=== PATIENT | female | born 1990 | race Two or more races ===

== ENCOUNTER 2021-02-20 11:49 | Observation (INO) | payer MEDICAID ==
[~2021-02-20] VITALS: Ht 157.5 cm; Wt 73.9 kg
== END 2021-02-20 13:16 | disposition home or self-care (01) ==
LOC: OB 11:49 → LDRP 12:00
PROVIDERS: ADMIT Obstetrics & Gynecology; ATTEND Obstetrics & Gynecology
DX: O40.3XX0 Polyhydramnios, third trimester, not applicable or unspecified (principal); O62.9 Abnormality of forces of labor, unspecified; Z3A.28 28 weeks gestation of pregnancy
CPT/HCPCS: 59025; 81002; 94760; G0378

== ENCOUNTER 2021-02-27 08:55 | Observation (INO) | payer MEDICAID ==
[2021-05-02] MEDS ORDERED: NIF10C PO (12:08)
== END 2021-02-27 10:18 | disposition home or self-care (01) ==
LOC: LDRP 08:55
PROVIDERS: ADMIT Specialist; ATTEND Specialist
DX: O40.3XX0 Polyhydramnios, third trimester, not applicable or unspecified (principal); Z3A.29 29 weeks gestation of pregnancy
CPT/HCPCS: 59025; 81002; 94760; G0378

== ENCOUNTER 2021-03-06 08:45 | Observation (INO) | payer MEDICAID ==
[~2021-03-06] VITALS: Ht 154.9 cm; Wt 73.9 kg
[2021-03-06] MEDS ORDERED: [UNRECOGNIZED DRUG - CODE] OR (09:25)
== END 2021-03-06 10:14 | disposition home or self-care (01) ==
LOC: LDRP 08:45
PROVIDERS: ADMIT Obstetrics & Gynecology; ATTEND Obstetrics & Gynecology
DX: O40.3XX0 Polyhydramnios, third trimester, not applicable or unspecified (principal); O24.419 Gestational diabetes mellitus in pregnancy, unspecified control; Z91.040 Latex allergy status; Z3A.30 30 weeks gestation of pregnancy
CPT/HCPCS: 59025; 81002; 82962; G0378

== ENCOUNTER 2021-03-13 08:39 | Observation (INO) | payer MEDICAID, OTHER ==
[~2021-03-13 08:39] MED LIST: [UNRECOGNIZED DRUG - CODE] OR
== END 2021-03-13 11:00 | disposition home or self-care (01) ==
LOC: EDUNIT# 08:39 → LDRP 08:39
PROVIDERS: ADMIT Specialist; ATTEND Specialist
DX: O40.3XX0 Polyhydramnios, third trimester, not applicable or unspecified (principal); O24.419 Gestational diabetes mellitus in pregnancy, unspecified control; Z3A.31 31 weeks gestation of pregnancy
CPT/HCPCS: 59025; 76818; 81002; 82948; 82962; G0378

== ENCOUNTER 2021-03-18 08:00 | Observation (INO) | payer MEDICAID | END 2021-03-18 10:23 | disposition home or self-care (01) | LOC: LDRP 08:00 | PROVIDERS: ADMIT Specialist; ATTEND Specialist | DX: O40.3XX0 Polyhydramnios, third trimester, not applicable or unspecified (principal); O24.419 Gestational diabetes mellitus in pregnancy, unspecified control; Z3A.31 31 weeks gestation of pregnancy | CPT/HCPCS: 59025; 76818; 81002; 82962; G0378 ==

== ENCOUNTER 2021-03-21 09:03 | Observation (INO) | payer MEDICAID | END 2021-03-21 11:09 | disposition home or self-care (01) | LOC: LDRP 10:00 | PROVIDERS: ADMIT Obstetrics & Gynecology; ATTEND Obstetrics & Gynecology | DX: O24.419 Gestational diabetes mellitus in pregnancy, unspecified control (principal); Z3A.32 32 weeks gestation of pregnancy | CPT/HCPCS: 59025; 76818; 81002; 82948; 82962; 94760; G0378 ==

== ENCOUNTER 2021-03-28 09:58 | Observation (INO) | payer MEDICAID ==
[~2021-03-28] VITALS: Ht 157.5 cm; Wt 78.5 kg
[2021-03-28] MEDS ORDERED: METF-370 PO (11:05)
== END 2021-03-28 11:55 | disposition home or self-care (01) ==
LOC: LDRP 09:58
PROVIDERS: ADMIT Specialist; ATTEND Specialist
DX: O24.419 Gestational diabetes mellitus in pregnancy, unspecified control (principal); O40.3XX0 Polyhydramnios, third trimester, not applicable or unspecified; Z3A.33 33 weeks gestation of pregnancy
CPT/HCPCS: 59025; 76818; 81002; 94760; G0378

== ENCOUNTER 2021-04-02 09:58 | Observation (INO) | payer MEDICAID ==
[~2021-04-02 09:58] MED LIST changes: +METF-370 PO
== END 2021-04-02 11:20 | disposition home or self-care (01) ==
LOC: LDRP 09:58
PROVIDERS: ADMIT Specialist; ATTEND Specialist
DX: O24.419 Gestational diabetes mellitus in pregnancy, unspecified control (principal); Z3A.33 33 weeks gestation of pregnancy
CPT/HCPCS: 59025; 76818; 81002; 82948; G0378

== ENCOUNTER 2021-04-09 08:01 | Observation (INO) | payer MEDICAID | END 2021-04-18 09:55 | disposition home or self-care (01) | LOC: LDRP 04-18 08:22 | PROVIDERS: ADMIT Obstetrics & Gynecology; ATTEND Obstetrics & Gynecology | DX: O24.419 Gestational diabetes mellitus in pregnancy, unspecified control (principal); Z3A.36 36 weeks gestation of pregnancy | CPT/HCPCS: 59025; 76818; 81002; 82948; 82962; 94760; G0378 ==

== ENCOUNTER 2021-04-09 11:19 | Observation (INO) | payer MEDICAID, OTHER | END 2021-04-09 12:30 | disposition home or self-care (01) | LOC: LDRP 11:19 → EDUNIT# 11:19 → LDRP 11:21 | PROVIDERS: ADMIT Obstetrics & Gynecology; ATTEND Obstetrics & Gynecology | DX: O24.419 Gestational diabetes mellitus in pregnancy, unspecified control (principal); Z3A.34 34 weeks gestation of pregnancy; Z91.040 Latex allergy status | CPT/HCPCS: 59025; 81002; 82948; 82962; 94760; G0378 ==

== ENCOUNTER 2021-04-25 07:36 | Observation (INO) | payer MEDICAID ==
[2021-05-02] MEDS ORDERED: NIF10C PO (12:08)
== END 2021-04-25 10:52 | disposition home or self-care (01) ==
LOC: LDRP 09:06
PROVIDERS: ADMIT Obstetrics & Gynecology; ATTEND Obstetrics & Gynecology
DX: O24.415 Gestational diabetes mellitus in pregnancy, controlled by oral hypoglycemic drugs (principal); Z79.84 Long term (current) use of oral hypoglycemic drugs; Z3A.37 37 weeks gestation of pregnancy
CPT/HCPCS: 59025; 76818; 81002; 82948; 94760; G0378

== ENCOUNTER 2021-04-29 09:03 | Observation (INO) | payer MEDICAID ==
[~2021-04-29] VITALS: Ht 157.5 cm; Wt 81.6 kg
[2021-04-29] MEDS ORDERED: TERBUTALINE SULFATE 1 MG/ML 1ML VIAL SC ONE (11:26)
[2021-04-29] MEDS ORDERED: TERBUTALINE SULFATE 1 MG/ML 1ML VIAL SC PRN (12:50)
[2021-04-29] MEDS ORDERED: NIFEdipine 10 MG CAP PO ONE (13:15)
[2021-04-29] MEDS ORDERED: NIFEdipine 10 MG CAP PO SCH (19:00)
[2021-04-30] MEDS ORDERED: TERBUTALINE SULFATE 1 MG/ML 1ML VIAL SC ONE (10:00)
== END 2021-04-29 14:28 | disposition home or self-care (01) ==
LOC: LDRP 10:19
PROVIDERS: ADMIT Obstetrics & Gynecology; ATTEND Obstetrics & Gynecology
DX: O24.419 Gestational diabetes mellitus in pregnancy, unspecified control (principal); Z20.822 Contact with and (suspected) exposure to COVID-19; O60.03 Preterm labor without delivery, third trimester; O62.9 Abnormality of forces of labor, unspecified; Z3A.37 37 weeks gestation of pregnancy
CPT/HCPCS: 36415; 59025; 76818; 81002; 82962; 87426; 94760; 96372; G0378; J3105

== ENCOUNTER 2021-05-02 10:05 | Observation (INO) | payer MEDICAID ==
[2021-05-02] MEDS ORDERED: NIF10C PO ×2 (12:08)
[2021-05-02] MEDS ORDERED: NIFEdipine 10 MG CAP PO ONE (12:15)
== END 2021-05-02 13:16 | disposition home or self-care (01) ==
LOC: LDRP 10:05
PROVIDERS: ADMIT Obstetrics & Gynecology; ATTEND Obstetrics & Gynecology
DX: O24.419 Gestational diabetes mellitus in pregnancy, unspecified control (principal); O62.9 Abnormality of forces of labor, unspecified; Z3A.37 37 weeks gestation of pregnancy
CPT/HCPCS: 59025; 76818; 81002; 82948; 82962; 94760; G0378

== ENCOUNTER 2021-05-06 07:48 | Observation (INO) | payer MEDICAID ==
[~2021-05-06 07:48] MED LIST changes: +NIF10C PO
== END 2021-05-06 11:20 | disposition home or self-care (01) ==
LOC: LDRP 10:00
PROVIDERS: ADMIT Obstetrics & Gynecology; ATTEND Obstetrics & Gynecology
DX: O24.419 Gestational diabetes mellitus in pregnancy, unspecified control (principal); Z3A.38 38 weeks gestation of pregnancy
CPT/HCPCS: 76818; 82962; G0378; 59025; 81002

== ENCOUNTER 2021-05-09 04:08 | Inpatient (IN) | payer MEDICAID ==
[~2021-05-09] VITALS: Ht 157.5 cm; Wt 73.5 kg
[2021-05-09] VITALS (22 sets, daily range): BP systolic 96–143; BP diastolic 47–79
[2021-05-09] MEDS ORDERED: LACTATED RINGER'S 1,000 ML IV ONE (04:15)
[2021-05-09] MEDS ORDERED: ceFAZolin 1GM/50ML 50 ML IV ONE (04:15)
[2021-05-09 04:43] LABS: Basophils # (auto) 0.1 10 ^3/uL (0-0.2); Basophils % (auto) 0.9 % (0.0-2.0); Eosinophils # (auto) 0.1 10 ^3/uL (0-0.8); Eosinophils % (auto) 0.9 % (0.0-7.0); Hematocrit 38.4 % (36.0-46.0); Hemoglobin 13.5 g/dL (12.2-16.2); Lymphocytes # (auto) 2.4 10 ^3/uL (0.4-5.4); Lymphocytes % (auto) 31.2 % (10.0-50.0); Mean Corpuscular Hemoglobin 30.5 pg (28.0-32.0); Mean Corpuscular Hgb Conc. 35.1 g/dL (32.0-36.0); Monocytes # (auto) 0.8 10 ^3/uL (0-1.3); Monocytes % (auto) 10.7 % (0.0-12.0); Neutrophils # (auto) 4.4 10 ^3/uL (1.6-8.6); Neutrophils % (auto) 56.3 % (37.0-80.0); Nucleated Red Blood Cells % 0.1 %; Red Blood Cells 4.41 10^6/uL (4.0-5.20); Red Cell Distribution Width 13.1 % (11.8-14.3); White Blood Cell 7.8 10^3/uL (4.4-10.8)
[2021-05-09 04:59] LABS: INR 0.96 (0.9-1.15); Partial Thromboplastin Time 25.7 sec (23.6-33.0)
[2021-05-09 05:01] LABS: Amphetamine Screen, Urine NEGATIVE (NEGATIVE); Barbiturate Scree,Urine NEGATIVE (NEGATIVE); Benzodiazephine Screen, Urine NEGATIVE (NEGATIVE); Cannabinoid Screen, Urine NEGATIVE (NEGATIVE); Cocaine Screen, Urine NEGATIVE (NEGATIVE); Opiate Scree,Urine NEGATIVE (NEGATIVE); Phencyclidine Screen, Urine NEGATIVE (NEGATIVE)
[2021-05-09 05:01] LABS: Albumin 2.7 g/dL (3.4-5.0); Calcium 9.3 mg/dL (8.5-10.1)
[2021-05-09 05:05] LABS: BUN/Creatinine Ratio 15.5; Bilirubin, Total 0.3 mg/dL (0.2-1.0); Total Protein 7.3 g/dL (6.4-8.2)
[2021-05-09 05:21] LABS: Urine Bacteria MANY /hpf (None Seen); Urine Blood Negative /uL (Negative); Urine Mucus FEW (None Seen); Urine Specific Gravity 1.017 (1.001-1.035); Urine WBC 12 /hpf (0 - 5)
[2021-05-09] MEDS: LACTATED RINGER'S 1,000 ML IV SCH ×3 (05:50→21:21)
[2021-05-09] MEDS: SODIUM CITR/CITRIC ACID ORAL SOLN 30 ML PO SCH (06:50)
[2021-05-09] MEDS ORDERED: MORPHINE SULF(PF) 0.5MG/ML 10ML VIAL ONE (07:34)
[2021-05-09] MEDS ORDERED: MIDAZOLAM HCL 2MG/2ML 2ml VIAL (1mg/ml) ONE (07:34)
[2021-05-09] MEDS ORDERED: fentaNYL CITRATE 100 MCG/2 ML VL ONE (07:34)
[2021-05-09] MEDS ORDERED: ceFAZolin 1GM/50ML 50 ML IV SCH (08:45)
[2021-05-09] MEDS ORDERED: LACT. RINGERS/OXYTOCIN 20UNITS 1,000 ML IV ONE (08:45)
[2021-05-09] MEDS ORDERED: ONDANSETRON HCL 4 MG/2 ML VIAL IV PRN ×2 (08:45→09:00)
[2021-05-09] MEDS ORDERED: GUM (CHEWING) 1 GUM CHEW CHEW ONE (08:45)
[2021-05-09] MEDS ORDERED: LABETALOL HCL 5 MG/ML 4ML SYRINGE IV PRN (09:00)
[2021-05-09] MEDS ORDERED: DexAMETHasone SOD PHOS 10MG/1ML VIAL INJ IV PRN (09:00)
[2021-05-09] MEDS ORDERED: HYDROmorphone HCL 2 MG/ML VL IV PRN ×2 (09:00)
[2021-05-09] MEDS ORDERED: ACCU-CHEK COMFORT CURVE STRIP VI ONE (09:00)
[2021-05-09] MEDS ORDERED: KETOROLAC TROMETH 30 MG/ML 1ML VIAL IV PRN (09:00)
[2021-05-09] MEDS ORDERED: ePHEDrine SULFATE 50 MG/ML AMP IV PRN (09:00)
[2021-05-09] MEDS ORDERED: NALBUPHINE HCL 10 MG/1ml INJECTION SUBCUT ONE (09:00)
[2021-05-09] MEDS ORDERED: NALOXONE HCL 0.4 MG/ML VIAL IV PRN (09:00)
[2021-05-09] MEDS: diphenhdrAMINE HCL 50 MG/1 ML VL IV PRN ×2 (10:35→15:16)
[2021-05-09] MEDS: MORPHINE SULFATE 4 MG/ML SYR/VIAL IV PRN ×3 (13:15→21:21)
[2021-05-09] MEDS: ceFAZolin 1GM/50ML 50 ML IV SCH ×2 (15:15→23:09)
[2021-05-09] MEDS: ACCU-CHEK COMFORT CURVE STRIP VI SCH (21:49)
[2021-05-09 21:53] LABS: Basophils # (auto) 0 10 ^3/uL (0-0.2); Basophils % (auto) 0.2 % (0.0-2.0); Eosinophils # (auto) 0.1 10 ^3/uL (0-0.8); Eosinophils % (auto) 0.7 % (0.0-7.0); Hematocrit 35.3 % (36.0-46.0); Hemoglobin 12.3 g/dL (12.2-16.2); Lymphocytes # (auto) 1.2 10 ^3/uL (0.4-5.4); Lymphocytes % (auto) 12.8 % (10.0-50.0); Mean Corpuscular Hemoglobin 30.7 pg (28.0-32.0); Mean Corpuscular Hgb Conc. 34.7 g/dL (32.0-36.0); Mean Corpuscular Volume 88.5 fL (80.0-100.0); Monocytes # (auto) 0.9 10 ^3/uL (0-1.3); Monocytes % (auto) 9.8 % (0.0-12.0); Neutrophils # (auto) 7.3 10 ^3/uL (1.6-8.6); Neutrophils % (auto) 76.5 % (37.0-80.0); Nucleated Red Blood Cells % 0.1 %; Red Blood Cells 3.99 10^6/uL (4.0-5.20); Red Cell Distribution Width 13.3 % (11.8-14.3); White Blood Cell 9.5 10^3/uL (4.4-10.8)
[2021-05-10] VITALS (11 sets, daily range): BP systolic 100–128; BP diastolic 62–71
[2021-05-10] MEDS: LACTATED RINGER'S 1,000 ML IV SCH (04:15)
[2021-05-10 06:23] LABS: Basophils # (auto) 0 10 ^3/uL (0-0.2); Basophils % (auto) 0.3 % (0.0-2.0); Eosinophils # (auto) 0.1 10 ^3/uL (0-0.8); Eosinophils % (auto) 1.1 % (0.0-7.0); Hematocrit 34.8 % (36.0-46.0); Hemoglobin 11.9 g/dL (12.2-16.2); Lymphocytes # (auto) 1.3 10 ^3/uL (0.4-5.4); Lymphocytes % (auto) 14.1 % (10.0-50.0); Mean Corpuscular Hemoglobin 30.1 pg (28.0-32.0); Mean Corpuscular Hgb Conc. 34.2 g/dL (32.0-36.0); Monocytes % (auto) 10.4 % (0.0-12.0); Neutrophils # (auto) 6.8 10 ^3/uL (1.6-8.6); Neutrophils % (auto) 74.1 % (37.0-80.0); Red Blood Cells 3.95 10^6/uL (4.0-5.20); Red Cell Distribution Width 13.5 % (11.8-14.3); White Blood Cell 9.1 10^3/uL (4.4-10.8)
[2021-05-10 07:06] LABS: RPR Non Reactive (Non Reactive)
[2021-05-10] MEDS: MORPHINE SULFATE 4 MG/ML SYR/VIAL IV PRN (08:06)
[2021-05-10] MEDS: ceFAZolin 1GM/50ML 50 ML IV SCH (08:07)
[2021-05-10] MEDS ORDERED: BISACODYL 10 MG RECT SUPP PR PRN (09:30)
[2021-05-10] MEDS ORDERED: HYDROcodone-ACET 5/325MG TAB PO PRN (09:30)
[2021-05-10] MEDS: DOCUSATE CALCIUM 240 MG CAP PO SCH (10:04)
[2021-05-10] MEDS: DOCUSATE SOD 100 MG CAP PO SCH ×2 (10:07→22:00)
[2021-05-10] MEDS: ACCU-CHEK COMFORT CURVE STRIP VI SCH (12:28)
[2021-05-10] MEDS: SIMETHICONE 80 MG CHEWABLE TABLET PO SCH ×3 (12:28→22:00)
[2021-05-10] MEDS: HYDROcodone-ACET 5/325MG TAB PO PRN (13:19)
[2021-05-10] MEDS: IBUPROFEN 800 MG TAB PO PRN (17:28)
[2021-05-11] MEDS: IBUPROFEN 800 MG TAB PO PRN ×2 (02:28→16:49)
[2021-05-11 02:29] VITALS: BP 99/54
[2021-05-11] MEDS: SIMETHICONE 80 MG CHEWABLE TABLET PO SCH ×4 (05:41→22:00)
[2021-05-11 07:00] VITALS: BP 99/54
[2021-05-11] MEDS: DOCUSATE CALCIUM 240 MG CAP PO SCH (08:33)
[2021-05-11] MEDS: DOCUSATE SOD 100 MG CAP PO SCH ×2 (08:35→21:42)
[2021-05-11] MEDS: ACCU-CHEK COMFORT CURVE STRIP VI SCH (10:00)
[2021-05-11 11:00] VITALS: BP 100/66
[2021-05-11 15:00] VITALS: BP 128/67
[2021-05-11] MEDS: HYDROcodone-ACET 5/325MG TAB PO PRN (15:41)
[2021-05-11] MEDS ORDERED: ENOXAPARIN SOD 80 MG/0.8ML SYRINGE SC ONE ×2 (16:15→16:30)
[2021-05-11] MEDS ORDERED: LACTULOSE 20Gm/30ML SOLN PO PRN (16:15)
[2021-05-11 18:45] VITALS: BP 104/64
[2021-05-11 23:12] VITALS: BP 109/68
[2021-05-12 03:23] VITALS: BP 104/62
[2021-05-12] MEDS: SIMETHICONE 80 MG CHEWABLE TABLET PO SCH ×4 (05:33→22:06)
[2021-05-12] MEDS: ENOXAPARIN SOD 80 MG/0.8ML SYRINGE SC SCH ×2 (05:34→17:28)
[2021-05-12 06:59] LABS: Basophils # (auto) 0 10 ^3/uL (0-0.2); Basophils % (auto) 0.4 % (0.0-2.0); Eosinophils # (auto) 0.2 10 ^3/uL (0-0.8); Hematocrit 30.6 % (36.0-46.0); Hemoglobin 10.6 g/dL (12.2-16.2); Lymphocytes # (auto) 1.9 10 ^3/uL (0.4-5.4); Lymphocytes % (auto) 31.8 % (10.0-50.0); Mean Corpuscular Hemoglobin 31.1 pg (28.0-32.0); Mean Corpuscular Hgb Conc. 34.7 g/dL (32.0-36.0); Mean Corpuscular Volume 89.5 fL (80.0-100.0); Monocytes # (auto) 0.7 10 ^3/uL (0-1.3); Monocytes % (auto) 10.9 % (0.0-12.0); Neutrophils # (auto) 3.2 10 ^3/uL (1.6-8.6); Neutrophils % (auto) 53.9 % (37.0-80.0); Nucleated Red Blood Cells % 0.1 %; Red Blood Cells 3.41 10^6/uL (4.0-5.20); Red Cell Distribution Width 13.4 % (11.8-14.3)
[2021-05-12 07:00] VITALS: BP 107/73
[2021-05-12] MEDS: ACCU-CHEK COMFORT CURVE STRIP VI SCH (10:00)
[2021-05-12] MEDS: DOCUSATE CALCIUM 240 MG CAP PO SCH (10:19)
[2021-05-12] MEDS: DOCUSATE SOD 100 MG CAP PO SCH ×2 (10:20→22:06)
[2021-05-12 11:00] VITALS: BP 128/74
[2021-05-12 13:03] LABS: INR 0.94 (0.9-1.15); Partial Thromboplastin Time 30.9 sec (23.6-33.0)
[2021-05-12 15:00] VITALS: BP 123/82
[2021-05-12] MEDS: IBUPROFEN 800 MG TAB PO PRN (16:22)
[2021-05-12] MEDS ORDERED: WARFARIN SODIUM 5 MG TAB PO ONE (17:00)
[2021-05-12 19:30] VITALS: BP 116/63
[2021-05-12 23:00] VITALS: BP 112/66
[2021-05-12] MEDS ORDERED: TETANUS-DIPTH-ACEL PERTUSSIS 0.5ML SYR Tdap IM ONE (23:30)
[2021-05-13 03:23] VITALS: BP 105/69
[2021-05-13] MEDS: SIMETHICONE 80 MG CHEWABLE TABLET PO SCH (05:39)
[2021-05-13] MEDS: ENOXAPARIN SOD 80 MG/0.8ML SYRINGE SC SCH (05:44)
[2021-05-13 07:00] VITALS: BP 111/66
[2021-05-13 07:14] LABS: Partial Thromboplastin Time 30.6 sec (23.6-33.0)
[2021-05-13] MEDS ORDERED: ENOX80IN SC (09:28)
[2021-05-13] MEDS ORDERED: WARF5TAB71 PO (09:28)
[2021-05-13] MEDS: HYDROcodone-ACET 5/325MG TAB PO PRN (10:08)
[2021-05-13] MEDS: DOCUSATE CALCIUM 240 MG CAP PO SCH (10:08)
[2021-05-13] MEDS: DOCUSATE SOD 100 MG CAP PO SCH (10:08)
[2021-05-13 11:00] VITALS: BP 110/65
[2021-05-13] MEDS ORDERED: WARFARIN SODIUM 2.5 MG TAB PO ONE (17:00)
== END 2021-05-13 13:05 | disposition home or self-care (01) | DRG 539 ==
LOC: LDRP 04:08
PROVIDERS: ADMIT Obstetrics & Gynecology; ATTEND Obstetrics & Gynecology
PROC: 10D00Z1 Extraction of Products of Conception, Low, Open Approach (ICD-10-PCS; 2021-05-09)
PROC: 0UL70CZ Occlusion of Bilateral Fallopian Tubes with Extraluminal Device, Open Approach (ICD-10-PCS; principal; 2021-05-09 07:30)
DX: O34.211 Maternal care for low transverse scar from previous cesarean delivery (principal); I82.439 Acute embolism and thrombosis of unspecified popliteal vein; O87.1 Deep phlebothrombosis in the puerperium; Z20.822 Contact with and (suspected) exposure to COVID-19; O24.429 Gestational diabetes mellitus in childbirth, unspecified control; Z37.0 Single live birth; Z30.2 Encounter for sterilization
CPT/HCPCS: 36415; 59025; 80053; 80307; 81001; 81002; 81241; 82948; 82962; 85025; 85302; 85305; 85306; 85610; 85613; 85670; 85705; 85730; 85732; 86592; 86850; 86900; 86901; 90715; 93970; 94760; 94762; 96360; 96361; 96365; 96366; 96372; G0378; J0690; J2250; J2590

== ENCOUNTER 2021-05-15 17:04 | Inpatient (IN) | payer MEDICAID ==
[~2021-05-15] VITALS: Ht 157.5 cm; Wt 49.1 kg
[~2021-05-15 17:04] MED LIST changes: +ENOX80IN SC; -METF-370 PO; -NIF10C PO; +WARF5TAB71 PO
[2021-05-15 18:28] LABS: Basophils # (auto) 0 10 ^3/uL (0-0.2); Basophils % (auto) 0.4 % (0.0-2.0); Eosinophils # (auto) 0.3 10 ^3/uL (0-0.8); Hematocrit 37.1 % (36.0-46.0); Hemoglobin 11.9 g/dL (12.2-16.2); Lymphocytes # (auto) 1.6 10 ^3/uL (0.4-5.4); Lymphocytes % (auto) 23.8 % (10.0-50.0); Mean Corpuscular Hemoglobin 29.2 pg (28.0-32.0); Mean Corpuscular Hgb Conc. 32.1 g/dL (32.0-36.0); Mean Corpuscular Volume 90.8 fL (80.0-100.0); Monocytes # (auto) 0.7 10 ^3/uL (0-1.3); Monocytes % (auto) 10.3 % (0.0-12.0); Neutrophils % (auto) 60.5 % (37.0-80.0); Red Blood Cells 4.08 10^6/uL (4.0-5.20); Red Cell Distribution Width 13.5 % (11.8-14.3); White Blood Cell 6.5 10^3/uL (4.4-10.8)
[2021-05-15 18:38] LABS: Albumin 2.8 g/dL (3.4-5.0); BUN/Creatinine Ratio 22.5; Calcium 8.7 mg/dL (8.5-10.1); Potassium 3.8 mmol/L (3.5-5.1)
[2021-05-15 18:41] LABS: Bilirubin, Total 0.2 mg/dL (0.2-1.0); Total Protein 7.4 g/dL (6.4-8.2)
[2021-05-15 18:43] LABS: INR 1.86 (0.9-1.15); Partial Thromboplastin Time 38.3 sec (23.6-33.0)
[2021-05-15] MEDS ORDERED: HEPARIN SODIUM (PORCINE) 5000 UNITS/ML 1ML VIAL IV ONE ×2 (21:30→21:45)
[2021-05-15] MEDS ORDERED: HEPARIN DRIP/D5W 100UNITS/ML 250 ML IV SCH (22:00)
[2021-05-15 22:34] LABS: Urine Bacteria NONE SEEN /hpf (None Seen); Urine Blood 3+ /uL (Negative); Urine Specific Gravity 1.014 (1.001-1.035); Urine WBC 3 /hpf (0 - 5)
[2021-05-15] MEDS ORDERED: ALBUMIN 25% 50 ML IV ONE (22:45)
[2021-05-15] MEDS ORDERED: MORPHINE SULFATE INJECTION 2 MG/ML SYRG IV PRN (22:45)
[2021-05-15] MEDS ORDERED: NITROGLYCERIN 0.4 MG SL TAB SL PRN (22:45)
[2021-05-15] MEDS ORDERED: ONDANSETRON HCL 4 MG/2 ML VIAL IV PRN (22:45)
[2021-05-16 03:24] LABS: Basophils # (auto) 0 10 ^3/uL (0-0.2); Basophils % (auto) 0.6 % (0.0-2.0); Eosinophils # (auto) 0.4 10 ^3/uL (0-0.8); Eosinophils % (auto) 4.9 % (0.0-7.0); Hematocrit 34.4 % (36.0-46.0); Hemoglobin 11.7 g/dL (12.2-16.2); Lymphocytes # (auto) 2.3 10 ^3/uL (0.4-5.4); Lymphocytes % (auto) 31.8 % (10.0-50.0); Mean Corpuscular Hemoglobin 30.4 pg (28.0-32.0); Mean Corpuscular Volume 89.6 fL (80.0-100.0); Monocytes # (auto) 0.8 10 ^3/uL (0-1.3); Monocytes % (auto) 11.5 % (0.0-12.0); Neutrophils # (auto) 3.7 10 ^3/uL (1.6-8.6); Neutrophils % (auto) 51.2 % (37.0-80.0); Red Blood Cells 3.84 10^6/uL (4.0-5.20); Red Cell Distribution Width 13.5 % (11.8-14.3); White Blood Cell 7.2 10^3/uL (4.4-10.8)
[2021-05-16 03:43] LABS: Albumin 2.8 g/dL (3.4-5.0); Calcium 8.9 mg/dL (8.5-10.1); Potassium 3.8 mmol/L (3.5-5.1)
[2021-05-16 03:45] LABS: BUN/Creatinine Ratio 20.5
[2021-05-16 03:48] LABS: Bilirubin, Total 0.2 mg/dL (0.2-1.0)
[2021-05-16] MEDS: SODIUM CHLOR 0.9% PF (SALINE LOCK) 10ML VIAL/SYR IV SCH ×3 (06:50→22:10)
[2021-05-16 07:49] VITALS: BP 114/75
[2021-05-16 09:00] VITALS: BP 114/69
[2021-05-16] MEDS: FAMOTIDINE (10MG/ML) 2ML VL IV SCH ×2 (09:13→22:04)
[2021-05-16] MEDS: ZINC SULFATE 220mg CAP or TAB PO SCH (09:14)
[2021-05-16] MEDS: ASCORBIC ACID 500 MG TAB PO SCH ×2 (09:14→22:05)
[2021-05-16] MEDS: MULTIPLE VITAMIN TAB PO SCH (09:14)
[2021-05-16] MEDS: DOCUSATE SOD 100 MG CAP PO PRN (09:15)
[2021-05-16] MEDS: HYDROcodone-ACET 5/325MG TAB PO PRN ×2 (09:15→22:05)
[2021-05-16 10:49] LABS: INR 2.38 (0.9-1.15)
[2021-05-16 10:53] LABS: Partial Thromboplastin Time 119.5 sec (23.6-33.0)
[2021-05-16 12:00] VITALS: BP 102/63
[2021-05-16] MEDS ORDERED: HEPARIN DRIP/D5W 100UNITS/ML 250 ML IV SCH (13:15)
[2021-05-16 17:00] VITALS: BP 115/76
[2021-05-16] MEDS: WARFARIN SODIUM 5 MG TAB PO SCH (17:39)
[2021-05-16 20:00] VITALS: BP 121/70
[2021-05-16] MEDS ORDERED: ENOXAPARIN SOD 80 MG/0.8ML SYRINGE SC SCH (22:00)
[2021-05-17] MEDS: HYDROcodone-ACET 5/325MG TAB PO PRN ×5 (02:55→21:52)
[2021-05-17] MEDS: MORPHINE SULFATE 4 MG/ML SYR/VIAL IV PRN (05:42)
[2021-05-17] MEDS: SODIUM CHLOR 0.9% PF (SALINE LOCK) 10ML VIAL/SYR IV SCH ×3 (05:57→22:00)
[2021-05-17 06:39] LABS: Basophils # (auto) 0 10 ^3/uL (0-0.2); Basophils % (auto) 0.3 % (0.0-2.0); Eosinophils # (auto) 0.4 10 ^3/uL (0-0.8); Eosinophils % (auto) 4.8 % (0.0-7.0); Hematocrit 37.8 % (36.0-46.0); Hemoglobin 12.6 g/dL (12.2-16.2); Lymphocytes # (auto) 1.8 10 ^3/uL (0.4-5.4); Lymphocytes % (auto) 23.1 % (10.0-50.0); Mean Corpuscular Hemoglobin 29.9 pg (28.0-32.0); Mean Corpuscular Hgb Conc. 33.4 g/dL (32.0-36.0); Mean Corpuscular Volume 89.7 fL (80.0-100.0); Monocytes # (auto) 0.9 10 ^3/uL (0-1.3); Monocytes % (auto) 11.5 % (0.0-12.0); Neutrophils # (auto) 4.8 10 ^3/uL (1.6-8.6); Neutrophils % (auto) 60.3 % (37.0-80.0); Red Blood Cells 4.21 10^6/uL (4.0-5.20); Red Cell Distribution Width 13.3 % (11.8-14.3)
[2021-05-17 06:53] LABS: Calcium 9.1 mg/dL (8.5-10.1); Potassium 3.9 mmol/L (3.5-5.1)
[2021-05-17 06:56] LABS: BUN/Creatinine Ratio 26.2
[2021-05-17 07:06] LABS: INR 3.3 (0.9-1.15)
[2021-05-17 08:00] VITALS: BP 108/69
[2021-05-17] MEDS: MULTIPLE VITAMIN TAB PO SCH (08:37)
[2021-05-17] MEDS: FAMOTIDINE (10MG/ML) 2ML VL IV SCH ×2 (08:38→21:52)
[2021-05-17] MEDS: ZINC SULFATE 220mg CAP or TAB PO SCH (08:38)
[2021-05-17] MEDS: ASCORBIC ACID 500 MG TAB PO SCH ×2 (08:38→21:52)
[2021-05-17 09:30] VITALS: BP 108/69
[2021-05-17 13:00] VITALS: BP 114/71
[2021-05-17 16:30] VITALS: BP 115/66
[2021-05-17] MEDS: WARFARIN SODIUM 5 MG TAB PO SCH (17:06)
[2021-05-17 18:35] LABS: Basophils # (auto) 0 10 ^3/uL (0-0.2); Basophils % (auto) 0.1 % (0.0-2.0); Eosinophils # (auto) 0.3 10 ^3/uL (0-0.8); Eosinophils % (auto) 3.2 % (0.0-7.0); Hematocrit 38.7 % (36.0-46.0); Hemoglobin 12.7 g/dL (12.2-16.2); Lymphocytes # (auto) 1.2 10 ^3/uL (0.4-5.4); Lymphocytes % (auto) 12.7 % (10.0-50.0); Mean Corpuscular Hemoglobin 29.1 pg (28.0-32.0); Mean Corpuscular Hgb Conc. 32.9 g/dL (32.0-36.0); Mean Corpuscular Volume 88.4 fL (80.0-100.0); Monocytes # (auto) 1.1 10 ^3/uL (0-1.3); Monocytes % (auto) 11.8 % (0.0-12.0); Neutrophils # (auto) 6.8 10 ^3/uL (1.6-8.6); Neutrophils % (auto) 72.2 % (37.0-80.0); Red Blood Cells 4.37 10^6/uL (4.0-5.20); Red Cell Distribution Width 13.3 % (11.8-14.3); White Blood Cell 9.4 10^3/uL (4.4-10.8)
[2021-05-17 20:00] VITALS: BP 116/74
[2021-05-17 22:00] VITALS: BP 116/72
[2021-05-18] MEDS: ACETAMINOPHEN 325 MG TAB PO PRN (01:03)
[2021-05-18 05:00] VITALS: BP 122/68
[2021-05-18 05:41] LABS: INR 3.8 (0.9-1.15)
[2021-05-18] MEDS: SODIUM CHLOR 0.9% PF (SALINE LOCK) 10ML VIAL/SYR IV SCH ×3 (05:56→21:42)
[2021-05-18 08:00] VITALS: BP 120/71
[2021-05-18] MEDS: FAMOTIDINE (10MG/ML) 2ML VL IV SCH ×2 (08:36→21:42)
[2021-05-18] MEDS: ASCORBIC ACID 500 MG TAB PO SCH ×2 (08:37→21:42)
[2021-05-18] MEDS: MULTIPLE VITAMIN TAB PO SCH (08:37)
[2021-05-18] MEDS: ZINC SULFATE 220mg CAP or TAB PO SCH (08:37)
[2021-05-18] MEDS: HYDROcodone-ACET 5/325MG TAB PO PRN ×2 (08:37→13:51)
[2021-05-18 09:00] VITALS: BP 120/71
[2021-05-18 13:00] VITALS: BP 105/63
[2021-05-18] MEDS ORDERED: HEPARIN 1,000 UNITS/ml 1ML VIAL IV ONE (14:30)
[2021-05-18] MEDS ORDERED: HEPARIN SODIUM (PORCINE) 5000 UNITS/ML 1ML VIAL IV ONE (15:15)
[2021-05-18] MEDS ORDERED: HEPARIN DRIP/D5W 100UNITS/ML 250 ML IV SCH (15:15)
[2021-05-18 16:00] LABS: Basophils # (auto) 0 10 ^3/uL (0-0.2); Basophils % (auto) 0.3 % (0.0-2.0); Eosinophils # (auto) 0.2 10 ^3/uL (0-0.8); Hematocrit 37.8 % (36.0-46.0); Hemoglobin 12.7 g/dL (12.2-16.2); Lymphocytes # (auto) 1.3 10 ^3/uL (0.4-5.4); Lymphocytes % (auto) 11.6 % (10.0-50.0); Mean Corpuscular Hemoglobin 29.9 pg (28.0-32.0); Mean Corpuscular Hgb Conc. 33.5 g/dL (32.0-36.0); Monocytes # (auto) 1.2 10 ^3/uL (0-1.3); Monocytes % (auto) 11.4 % (0.0-12.0); Neutrophils # (auto) 8.1 10 ^3/uL (1.6-8.6); Neutrophils % (auto) 74.7 % (37.0-80.0); Red Blood Cells 4.25 10^6/uL (4.0-5.20); Red Cell Distribution Width 13.4 % (11.8-14.3); White Blood Cell 10.9 10^3/uL (4.4-10.8)
[2021-05-18 16:48] LABS: INR 3.03 (0.9-1.15); Partial Thromboplastin Time 56.7 sec (23.6-33.0)
[2021-05-18] MEDS: MORPHINE SULFATE 4 MG/ML SYR/VIAL IV PRN (19:16)
[2021-05-18 20:00] VITALS: BP 132/72
[2021-05-18 22:00] VITALS: BP_SYST 132; BP_SYST 98; BP_DIAS 60; BP_DIAS 72
[2021-05-18 23:34] LABS: INR 2.62 (0.9-1.15)
[2021-05-18 23:44] LABS: Partial Thromboplastin Time 90.7 sec (23.6-33.0)
[2021-05-19] VITALS (7 sets, daily range): BP systolic 103–127; BP diastolic 68–81
[2021-05-19] MEDS: MORPHINE SULFATE 4 MG/ML SYR/VIAL IV PRN ×3 (03:10→17:06)
[2021-05-19 05:33] LABS: Basophils # (auto) 0 10 ^3/uL (0-0.2); Basophils % (auto) 0.1 % (0.0-2.0); Eosinophils # (auto) 0.2 10 ^3/uL (0-0.8); Eosinophils % (auto) 1.3 % (0.0-7.0); Hematocrit 37.3 % (36.0-46.0); Hemoglobin 12.5 g/dL (12.2-16.2); Lymphocytes # (auto) 1.6 10 ^3/uL (0.4-5.4); Lymphocytes % (auto) 13.7 % (10.0-50.0); Mean Corpuscular Hemoglobin 29.9 pg (28.0-32.0); Mean Corpuscular Hgb Conc. 33.5 g/dL (32.0-36.0); Mean Corpuscular Volume 89.1 fL (80.0-100.0); Monocytes # (auto) 1.5 10 ^3/uL (0-1.3); Monocytes % (auto) 12.4 % (0.0-12.0); Neutrophils # (auto) 8.6 10 ^3/uL (1.6-8.6); Neutrophils % (auto) 72.5 % (37.0-80.0); Red Blood Cells 4.18 10^6/uL (4.0-5.20); Red Cell Distribution Width 13.7 % (11.8-14.3); White Blood Cell 11.9 10^3/uL (4.4-10.8)
[2021-05-19 05:37] LABS: INR 2.27 (0.9-1.15); Partial Thromboplastin Time 59.5 sec (23.6-33.0)
[2021-05-19 05:46] LABS: Albumin 2.6 g/dL (3.4-5.0)
[2021-05-19] MEDS: SODIUM CHLOR 0.9% PF (SALINE LOCK) 10ML VIAL/SYR IV SCH ×3 (06:00→21:53)
[2021-05-19] MEDS: FAMOTIDINE (10MG/ML) 2ML VL IV SCH ×2 (09:59→21:42)
[2021-05-19] MEDS: MULTIPLE VITAMIN TAB PO SCH (09:59)
[2021-05-19] MEDS: ZINC SULFATE 220mg CAP or TAB PO SCH (09:59)
[2021-05-19] MEDS: ASCORBIC ACID 500 MG TAB PO SCH ×2 (09:59→21:42)
[2021-05-19] MEDS: HYDROcodone-ACET 5/325MG TAB PO PRN ×2 (12:06→21:54)
[2021-05-19 18:55] LABS: INR 1.95 (0.9-1.15); Partial Thromboplastin Time 55.8 sec (23.6-33.0)
[2021-05-19] MEDS: HEPARIN DRIP/D5W 100UNITS/ML 250 ML IV SCH (19:24)
[2021-05-20] VITALS (9 sets, daily range): BP systolic 105–120; BP diastolic 61–76
[2021-05-20] MEDS: HEPARIN DRIP/D5W 100UNITS/ML 250 ML IV SCH (01:00)
[2021-05-20] MEDS: HYDROcodone-ACET 5/325MG TAB PO PRN ×2 (05:09→07:08)
[2021-05-20] MEDS: SODIUM CHLOR 0.9% PF (SALINE LOCK) 10ML VIAL/SYR IV SCH ×2 (06:00→22:00)
[2021-05-20] MEDS: ASCORBIC ACID 500 MG TAB PO SCH ×2 (09:48→22:07)
[2021-05-20] MEDS: ZINC SULFATE 220mg CAP or TAB PO SCH (09:48)
[2021-05-20] MEDS: FAMOTIDINE (10MG/ML) 2ML VL IV SCH ×2 (09:48→22:07)
[2021-05-20] MEDS: MULTIPLE VITAMIN TAB PO SCH (09:48)
[2021-05-20] MEDS: MORPHINE SULFATE 4 MG/ML SYR/VIAL IV PRN ×2 (11:42→20:44)
[2021-05-20] MEDS ORDERED: fentaNYL CITRATE 100 MCG/2 ML VL ONE (15:19)
[2021-05-20] MEDS ORDERED: MIDAZOLAM HCL 2MG/2ML 2ml VIAL (1mg/ml) ONE ×2 (15:20→15:49)
[2021-05-20] MEDS ORDERED: SODIUM CHL 0.9% 50 ML ONE (15:22)
[2021-05-20] MEDS ORDERED: ANGIOMAX 250 MG VIAL IV ONE (15:22)
[2021-05-20] MEDS ORDERED: HEPARIN DRIP/D5W 100UNITS/ML 250 ML IV ONE (15:22)
[2021-05-20] MEDS ORDERED: LIDOCAINE 2%HCL (LOCAL ANESTH.) INJ 20ML MDV ONE ×2 (15:29→16:09)
[2021-05-20] MEDS ORDERED: IOHEXOL 350 MG/ML 100ML IJ ONE ×2 (15:30→17:20)
[2021-05-20] MEDS ORDERED: HYDROmorphone HCL 2 MG/ML VL ONE (15:40)
[2021-05-20] MEDS ORDERED: HEPARIN SODIUM (PORCINE) 5000 UNITS/ML 1ML VIAL ONE ×2 (16:21→17:18)
[2021-05-20 19:48] LABS: Basophils # (auto) 0 10 ^3/uL (0-0.2); Basophils % (auto) 0.3 % (0.0-2.0); Eosinophils # (auto) 0.2 10 ^3/uL (0-0.8); Hemoglobin 11.4 g/dL (12.2-16.2); Monocytes # (auto) 1.3 10 ^3/uL (0-1.3); Red Cell Distribution Width 13.5 % (11.8-14.3); White Blood Cell 12.6 10^3/uL (4.4-10.8)
[2021-05-20 19:50] LABS: Eosinophils % (auto) 1.6 % (0.0-7.0); Hematocrit 34.3 % (36.0-46.0); Lymphocytes # (auto) 1.9 10 ^3/uL (0.4-5.4); Lymphocytes % (auto) 15.1 % (10.0-50.0); Mean Corpuscular Hemoglobin 29.6 pg (28.0-32.0); Mean Corpuscular Hgb Conc. 33.3 g/dL (32.0-36.0); Mean Corpuscular Volume 88.9 fL (80.0-100.0); Monocytes % (auto) 10.6 % (0.0-12.0); Neutrophils # (auto) 9.1 10 ^3/uL (1.6-8.6); Neutrophils % (auto) 72.4 % (37.0-80.0); Red Blood Cells 3.86 10^6/uL (4.0-5.20)
[2021-05-20 21:02] LABS: INR 1.64 (0.9-1.15)
[2021-05-20 21:21] LABS: Partial Thromboplastin Time > 139.0 sec (23.6-33.0)
[2021-05-21 01:30] LABS: INR 1.6 (0.9-1.15); Partial Thromboplastin Time 52.5 sec (23.6-33.0)
[2021-05-21] MEDS: MORPHINE SULFATE 4 MG/ML SYR/VIAL IV PRN ×2 (02:17→11:19)
[2021-05-21 05:00] VITALS: BP 102/63
[2021-05-21] MEDS: SODIUM CHLOR 0.9% PF (SALINE LOCK) 10ML VIAL/SYR IV SCH ×3 (06:09→21:29)
[2021-05-21 06:30] LABS: INR 1.61 (0.9-1.15); Partial Thromboplastin Time 54.8 sec (23.6-33.0)
[2021-05-21 08:44] VITALS: BP 107/60
[2021-05-21] MEDS: FAMOTIDINE (10MG/ML) 2ML VL IV SCH ×2 (09:17→21:29)
[2021-05-21] MEDS: ZINC SULFATE 220mg CAP or TAB PO SCH (09:18)
[2021-05-21] MEDS: MULTIPLE VITAMIN TAB PO SCH (09:18)
[2021-05-21] MEDS: HYDROcodone-ACET 5/325MG TAB PO PRN (09:18)
[2021-05-21] MEDS: ASCORBIC ACID 500 MG TAB PO SCH ×2 (09:18→21:29)
[2021-05-21 13:00] VITALS: BP 113/65
[2021-05-21 14:10] LABS: INR 1.51 (0.9-1.15); Partial Thromboplastin Time 46.1 sec (23.6-33.0)
[2021-05-21 17:00] VITALS: BP 111/73
[2021-05-21] MEDS: ACETAMINOPHEN 325 MG TAB PO PRN (17:26)
[2021-05-21] MEDS: HEPARIN DRIP/D5W 100UNITS/ML 250 ML IV SCH ×2 (18:55→21:55)
[2021-05-21 21:05] LABS: INR 1.38 (0.9-1.15); Partial Thromboplastin Time 44.9 sec (23.6-33.0)
[2021-05-21 22:00] VITALS: BP 104/56
[2021-05-22 01:28] LABS: INR 1.37 (0.9-1.15)
[2021-05-22] MEDS: DOCUSATE SOD 100 MG CAP PO PRN ×2 (01:43→07:58)
[2021-05-22] MEDS: ACETAMINOPHEN 325 MG TAB PO PRN ×2 (01:43→14:30)
[2021-05-22 05:00] VITALS: BP 118/73
[2021-05-22] MEDS: SODIUM CHLOR 0.9% PF (SALINE LOCK) 10ML VIAL/SYR IV SCH ×3 (06:06→22:57)
[2021-05-22 08:15] VITALS: BP 118/73
[2021-05-22 08:35] VITALS: BP 118/73
[2021-05-22 09:13] LABS: INR 1.27 (0.9-1.15); Partial Thromboplastin Time 46.6 sec (23.6-33.0)
[2021-05-22] MEDS: MULTIPLE VITAMIN TAB PO SCH (09:40)
[2021-05-22] MEDS: ASCORBIC ACID 500 MG TAB PO SCH ×2 (09:40→22:57)
[2021-05-22] MEDS: FAMOTIDINE (10MG/ML) 2ML VL IV SCH ×2 (09:40→22:57)
[2021-05-22] MEDS: ZINC SULFATE 220mg CAP or TAB PO SCH (09:40)
[2021-05-22 12:40] VITALS: BP 119/72
[2021-05-22 13:56] LABS: INR 1.24 (0.9-1.15); Partial Thromboplastin Time 53.2 sec (23.6-33.0)
[2021-05-22 17:00] VITALS: BP 110/72
[2021-05-22 21:38] VITALS: BP 116/75
[2021-05-22 22:46] LABS: INR 1.23 (0.9-1.15); Partial Thromboplastin Time 50.7 sec (23.6-33.0)
[2021-05-23] VITALS (37 sets, daily range): BP systolic 100–122; BP diastolic 60–78
[2021-05-23] MEDS: HEPARIN DRIP/D5W 100UNITS/ML 250 ML IV SCH ×2 (03:10→18:24)
[2021-05-23] MEDS: ACETAMINOPHEN 325 MG TAB PO PRN ×3 (04:27→19:50)
[2021-05-23] MEDS: SODIUM CHLOR 0.9% PF (SALINE LOCK) 10ML VIAL/SYR IV SCH ×3 (06:00→22:09)
[2021-05-23 09:44] LABS: Eosinophils # (auto) 0.5 10 ^3/uL (0-0.8); Monocytes # (auto) 0.8 10 ^3/uL (0-1.3)
[2021-05-23 09:46] LABS: Basophils # (auto) 0.1 10 ^3/uL (0-0.2); Basophils % (auto) 0.6 % (0.0-2.0); Eosinophils % (auto) 5.1 % (0.0-7.0); Hematocrit 26.3 % (36.0-46.0); Hemoglobin 8.8 g/dL (12.2-16.2); Lymphocytes # (auto) 2.3 10 ^3/uL (0.4-5.4); Lymphocytes % (auto) 22.7 % (10.0-50.0); Mean Corpuscular Hemoglobin 29.9 pg (28.0-32.0); Mean Corpuscular Hgb Conc. 33.5 g/dL (32.0-36.0); Mean Corpuscular Volume 89.3 fL (80.0-100.0); Monocytes % (auto) 7.9 % (0.0-12.0); Neutrophils # (auto) 6.4 10 ^3/uL (1.6-8.6); Neutrophils % (auto) 63.7 % (37.0-80.0); Nucleated Red Blood Cells % 0.1 %; Red Blood Cells 2.95 10^6/uL (4.0-5.20); Red Cell Distribution Width 13.8 % (11.8-14.3); White Blood Cell 10.1 10^3/uL (4.4-10.8)
[2021-05-23 10:14] LABS: INR 1.22 (0.9-1.15); Partial Thromboplastin Time 48.6 sec (23.6-33.0)
[2021-05-23] MEDS: FAMOTIDINE (10MG/ML) 2ML VL IV SCH ×2 (10:36→22:09)
[2021-05-23] MEDS: ZINC SULFATE 220mg CAP or TAB PO SCH (10:36)
[2021-05-23] MEDS: MULTIPLE VITAMIN TAB PO SCH (10:36)
[2021-05-23] MEDS: ASCORBIC ACID 500 MG TAB PO SCH (10:36)
[2021-05-23] MEDS ORDERED: [UNRECOGNIZED DRUG - OTHER] IV SCH (13:45)
[2021-05-23] MEDS ORDERED: ALTEPLASE (RECOMBINANT) 100 MG in STERILE WATER 100 ML IV ONE (16:00)
[2021-05-23 17:31] LABS: INR 1.2 (0.9-1.15)
[2021-05-23 18:23] LABS: Partial Thromboplastin Time 80.3 sec (23.6-33.0)
[2021-05-24] VITALS (40 sets, daily range): BP systolic 91–130; BP diastolic 50–96
[2021-05-24 00:56] LABS: INR 1.18 (0.9-1.15); Partial Thromboplastin Time 52.7 sec (23.6-33.0)
[2021-05-24] MEDS: DOCUSATE SOD 100 MG CAP PO PRN ×2 (00:59→20:03)
[2021-05-24] MEDS: HYDROcodone-ACET 5/325MG TAB PO PRN (01:02)
[2021-05-24 03:52] LABS: Eosinophils # (auto) 0.6 10 ^3/uL (0-0.8); Monocytes # (auto) 0.8 10 ^3/uL (0-1.3); Neutrophils % (auto) 55.5 % (37.0-80.0); Nucleated Red Blood Cells % 0.1 %
[2021-05-24 03:53] LABS: Basophils # (auto) 0.1 10 ^3/uL (0-0.2); Basophils % (auto) 0.6 % (0.0-2.0); Hematocrit 27.2 % (36.0-46.0); Hemoglobin 8.8 g/dL (12.2-16.2); Lymphocytes # (auto) 2.6 10 ^3/uL (0.4-5.4); Lymphocytes % (auto) 27.9 % (10.0-50.0); Mean Corpuscular Hemoglobin 29.1 pg (28.0-32.0); Mean Corpuscular Hgb Conc. 32.5 g/dL (32.0-36.0); Mean Corpuscular Volume 89.6 fL (80.0-100.0); Neutrophils # (auto) 5.1 10 ^3/uL (1.6-8.6); Red Blood Cells 3.04 10^6/uL (4.0-5.20); Red Cell Distribution Width 13.6 % (11.8-14.3); White Blood Cell 9.2 10^3/uL (4.4-10.8)
[2021-05-24 04:04] LABS: BUN/Creatinine Ratio 28.1; Calcium 8.8 mg/dL (8.5-10.1); Potassium 4.3 mmol/L (3.5-5.1)
[2021-05-24] MEDS: SODIUM CHLOR 0.9% PF (SALINE LOCK) 10ML VIAL/SYR IV SCH ×3 (06:07→21:49)
[2021-05-24] MEDS: ACETAMINOPHEN 325 MG TAB PO PRN ×3 (06:34→20:29)
[2021-05-24 07:17] LABS: INR 1.14 (0.9-1.15); Partial Thromboplastin Time 58.6 sec (23.6-33.0)
[2021-05-24] MEDS: HEPARIN DRIP/D5W 100UNITS/ML 250 ML IV SCH (07:19)
[2021-05-24] MEDS: FAMOTIDINE (10MG/ML) 2ML VL IV SCH ×2 (09:36→21:56)
[2021-05-24 15:01] LABS: INR 1.09 (0.9-1.15); Partial Thromboplastin Time 47.2 sec (23.6-33.0)
[2021-05-24] MEDS ORDERED: BISACODYL 10 MG RECT SUPP PR ONE (21:45)
[2021-05-24 23:17] LABS: INR 1.11 (0.9-1.15); Partial Thromboplastin Time 59.8 sec (23.6-33.0)
[2021-05-25] VITALS (31 sets, daily range): BP systolic 87–140; BP diastolic 52–84
[2021-05-25] MEDS: HYDROcodone-ACET 5/325MG TAB PO PRN ×2 (00:53→22:03)
[2021-05-25] MEDS: HEPARIN DRIP/D5W 100UNITS/ML 250 ML IV SCH (01:53)
[2021-05-25 03:27] LABS: Basophils # (auto) 0.1 10 ^3/uL (0-0.2); Basophils % (auto) 0.4 % (0.0-2.0); Eosinophils # (auto) 0.7 10 ^3/uL (0-0.8); Eosinophils % (auto) 5.9 % (0.0-7.0); Hemoglobin 9.6 g/dL (12.2-16.2); Mean Corpuscular Hemoglobin 29.8 pg (28.0-32.0); Mean Corpuscular Hgb Conc. 33.2 g/dL (32.0-36.0); Mean Corpuscular Volume 89.7 fL (80.0-100.0); Monocytes # (auto) 1.1 10 ^3/uL (0-1.3); Neutrophils # (auto) 7.3 10 ^3/uL (1.6-8.6); Neutrophils % (auto) 59.7 % (37.0-80.0); Nucleated Red Blood Cells % 0.1 %; Red Blood Cells 3.23 10^6/uL (4.0-5.20); Red Cell Distribution Width 14.1 % (11.8-14.3); White Blood Cell 12.2 10^3/uL (4.4-10.8)
[2021-05-25 03:45] LABS: Calcium 9.1 mg/dL (8.5-10.1); Potassium 4.2 mmol/L (3.5-5.1)
[2021-05-25 03:48] LABS: BUN/Creatinine Ratio 20.5
[2021-05-25] MEDS: ACETAMINOPHEN 325 MG TAB PO PRN ×2 (04:55→13:00)
[2021-05-25 05:55] LABS: INR 1.12 (0.9-1.15); Partial Thromboplastin Time 61.5 sec (23.6-33.0)
[2021-05-25] MEDS: SODIUM CHLOR 0.9% PF (SALINE LOCK) 10ML VIAL/SYR IV SCH ×3 (06:03→22:00)
[2021-05-25] MEDS: FAMOTIDINE (10MG/ML) 2ML VL IV SCH ×2 (10:35→21:46)
[2021-05-25] MEDS: DOCUSATE SOD 100 MG CAP PO PRN (10:35)
[2021-05-25 12:19] LABS: INR 1.11 (0.9-1.15); Partial Thromboplastin Time 63.9 sec (23.6-33.0)
[2021-05-25] MEDS ORDERED: LACTULOSE 20Gm/30ML SOLN PO ONE (17:00)
[2021-05-25] MEDS ORDERED: LACTULOSE 20Gm/30ML SOLN ONE (17:01)
[2021-05-26] VITALS (19 sets, daily range): BP systolic 88–111; BP diastolic 51–70
[2021-05-26 04:15] LABS: Basophils # (auto) 0.1 10 ^3/uL (0-0.2); Eosinophils # (auto) 0.7 10 ^3/uL (0-0.8); Eosinophils % (auto) 6.3 % (0.0-7.0); Hemoglobin 9.3 g/dL (12.2-16.2); Monocytes % (auto) 9.8 % (0.0-12.0); Neutrophils # (auto) 5.7 10 ^3/uL (1.6-8.6)
[2021-05-26 04:18] LABS: Basophils % (auto) 0.7 % (0.0-2.0); Hematocrit 28.3 % (36.0-46.0); Mean Corpuscular Hemoglobin 29.2 pg (28.0-32.0); Mean Corpuscular Hgb Conc. 32.7 g/dL (32.0-36.0); Mean Corpuscular Volume 89.3 fL (80.0-100.0); Neutrophils % (auto) 54.2 % (37.0-80.0); Nucleated Red Blood Cells % 0.3 %; Red Blood Cells 3.17 10^6/uL (4.0-5.20); Red Cell Distribution Width 14.1 % (11.8-14.3); White Blood Cell 10.4 10^3/uL (4.4-10.8)
[2021-05-26 04:25] LABS: INR 1.13 (0.9-1.15); Partial Thromboplastin Time 67.5 sec (23.6-33.0)
[2021-05-26] MEDS: SODIUM CHLOR 0.9% PF (SALINE LOCK) 10ML VIAL/SYR IV SCH ×3 (06:00→21:45)
[2021-05-26] MEDS: HEPARIN DRIP/D5W 100UNITS/ML 250 ML IV SCH (19:58)
[2021-05-26] MEDS: ACETAMINOPHEN 325 MG TAB PO PRN (21:45)
[2021-05-26] MEDS: FAMOTIDINE (10MG/ML) 2ML VL IV SCH (21:45)
[2021-05-27 05:31] VITALS: BP 100/55
[2021-05-27] MEDS: SODIUM CHLOR 0.9% PF (SALINE LOCK) 10ML VIAL/SYR IV SCH ×3 (06:27→21:54)
[2021-05-27 06:44] LABS: Basophils # (auto) 0.1 10 ^3/uL (0-0.2); Eosinophils # (auto) 0.6 10 ^3/uL (0-0.8); Hemoglobin 9.9 g/dL (12.2-16.2); Monocytes # (auto) 1.2 10 ^3/uL (0-1.3); Neutrophils # (auto) 5.5 10 ^3/uL (1.6-8.6)
[2021-05-27 06:48] LABS: Basophils % (auto) 0.5 % (0.0-2.0); Eosinophils % (auto) 5.8 % (0.0-7.0); Hematocrit 29.5 % (36.0-46.0); Lymphocytes % (auto) 29.2 % (10.0-50.0); Mean Corpuscular Hemoglobin 30.2 pg (28.0-32.0); Mean Corpuscular Hgb Conc. 33.6 g/dL (32.0-36.0); Mean Corpuscular Volume 89.8 fL (80.0-100.0); Monocytes % (auto) 11.3 % (0.0-12.0); Neutrophils % (auto) 53.2 % (37.0-80.0); Nucleated Red Blood Cells % 0.7 %; Red Blood Cells 3.28 10^6/uL (4.0-5.20); Red Cell Distribution Width 14.2 % (11.8-14.3); White Blood Cell 10.3 10^3/uL (4.4-10.8)
[2021-05-27 07:01] LABS: INR 1.11 (0.9-1.15); Partial Thromboplastin Time 65.2 sec (23.6-33.0)
[2021-05-27] MEDS: HEPARIN DRIP/D5W 100UNITS/ML 250 ML IV SCH (08:05)
[2021-05-27 09:00] VITALS: BP 101/68
[2021-05-27] MEDS: FAMOTIDINE (10MG/ML) 2ML VL IV SCH ×2 (09:39→21:54)
[2021-05-27 13:00] VITALS: BP 107/65
[2021-05-27 17:00] VITALS: BP 97/57
[2021-05-27] MEDS: APIXABAN 5 MG TAB PO SCH (21:35)
[2021-05-27] MEDS: ACETAMINOPHEN 325 MG TAB PO PRN (21:35)
[2021-05-27 22:00] VITALS: BP 106/63
[2021-05-28 05:14] VITALS: BP 102/64
[2021-05-28] MEDS: SODIUM CHLOR 0.9% PF (SALINE LOCK) 10ML VIAL/SYR IV SCH ×3 (06:00→21:10)
[2021-05-28 09:00] VITALS: BP 104/65
[2021-05-28] MEDS: APIXABAN 5 MG TAB PO SCH ×2 (09:02→21:10)
[2021-05-28] MEDS: FAMOTIDINE (10MG/ML) 2ML VL IV SCH ×2 (09:02→21:10)
[2021-05-28 13:00] VITALS: BP 109/65
[2021-05-28 17:00] VITALS: BP 101/61
[2021-05-28 22:00] VITALS: BP 102/66
[2021-05-28] MEDS: ACETAMINOPHEN 325 MG TAB PO PRN (22:29)
[2021-05-29 05:00] VITALS: BP 93/55
[2021-05-29] MEDS: SODIUM CHLOR 0.9% PF (SALINE LOCK) 10ML VIAL/SYR IV SCH ×2 (06:07→14:09)
[2021-05-29 09:12] VITALS: BP 104/69
[2021-05-29] MEDS: APIXABAN 5 MG TAB PO SCH (11:17)
[2021-05-29] MEDS: FAMOTIDINE (10MG/ML) 2ML VL IV SCH (11:17)
[2021-05-29 12:50] VITALS: BP 100/64
== END 2021-05-29 16:40 | disposition home or self-care (01) | DRG 561 ==
LOC: ER 17:14 → TELE 22:44 → TELE-WESTW 05-16 01:30 → ICU WEST 05-23 15:30 → WEST WING 05-26 14:05
PROVIDERS: ADMIT Nurse Practitioner Family; ATTEND Family Medicine
PROC: B54CZZA Ultrasonography of Left Lower Extremity Veins, Guidance (ICD-10-PCS; 2021-05-20)
PROC: 05HB33Z Insertion of Infusion Device into Right Basilic Vein, Percutaneous Approach (ICD-10-PCS; principal; 2021-05-23)
PROC: B54MZZA Ultrasonography of Right Upper Extremity Veins, Guidance (ICD-10-PCS; 2021-05-23)
DX: O87.1 Deep phlebothrombosis in the puerperium (principal); I82.412 Acute embolism and thrombosis of left femoral vein; I82.432 Acute embolism and thrombosis of left popliteal vein; I82.442 Acute embolism and thrombosis of left tibial vein; Z20.822 Contact with and (suspected) exposure to COVID-19; Z98.51 Tubal ligation status; Z79.01 Long term (current) use of anticoagulants; Z95.828 Presence of other vascular implants and grafts; Z98.891 History of uterine scar from previous surgery
CPT/HCPCS: 36415; 76942; 80048; 80053; 81001; 81025; 82040; 82565; 85025; 85610; 85730; 86850; 86900; 86901; 87081; 87426; 93926; 93971; 96365; 96367; 96376; 99152; 99153; C1769; G0378; J2250; J2405; J3490

== ENCOUNTER 2021-06-01 20:32 | Emergency (ER) | payer MEDICAID ==
[~2021-06-01] VITALS: Ht 157.5 cm; Wt 72.6 kg
[2021-06-01 21:27] LABS: Basophils # (auto) 0 10 ^3/uL (0-0.2); Eosinophils # (auto) 0.5 10 ^3/uL (0-0.8); Lymphocytes # (auto) 2.6 10 ^3/uL (0.4-5.4); Monocytes # (auto) 0.8 10 ^3/uL (0-1.3); White Blood Cell 8.4 10^3/uL (4.4-10.8)
[2021-06-01 21:29] LABS: Basophils % (auto) 0.4 % (0.0-2.0); Eosinophils % (auto) 6.5 % (0.0-7.0); Hematocrit 30.9 % (36.0-46.0); Hemoglobin 10.1 g/dL (12.2-16.2); Lymphocytes % (auto) 31.3 % (10.0-50.0); Mean Corpuscular Hemoglobin 29.4 pg (28.0-32.0); Mean Corpuscular Hgb Conc. 32.8 g/dL (32.0-36.0); Mean Corpuscular Volume 89.7 fL (80.0-100.0); Neutrophils # (auto) 4.3 10 ^3/uL (1.6-8.6); Neutrophils % (auto) 51.8 % (37.0-80.0); Nucleated Red Blood Cells % 0.1 %; Red Blood Cells 3.45 10^6/uL (4.0-5.20); Red Cell Distribution Width 14.3 % (11.8-14.3)
[2021-06-01 21:45] LABS: BUN/Creatinine Ratio 13.4; Calcium 9.2 mg/dL (8.5-10.1); Potassium 3.7 mmol/L (3.5-5.1)
[2021-06-02 07:12] VITALS: BP 131/81
== END 2021-06-02 07:13 | disposition home or self-care (01) ==
LOC: ER 20:32
DX: I82.502 Chronic embolism and thrombosis of unspecified deep veins of left lower extremity (principal); Z79.01 Long term (current) use of anticoagulants; Z79.899 Other long term (current) drug therapy
CPT/HCPCS: 36415; 80048; 85025; 93970

== ENCOUNTER → 2022-06-26 | Outpatient (CLI) | payer MEDICAID | END | disposition home or self-care (01) | LOC: Rad HDHVI 08:50 | PROVIDERS: ATTEND Internal Medicine Cardiovascular Disease | DX: I82.409 Acute embolism and thrombosis of unspecified deep veins of unspecified lower extremity (principal); R06.02 Shortness of breath | CPT/HCPCS: 93306 ==

== ENCOUNTER → 2022-07-08 | Outpatient (CLI) | payer MEDICAID | END | disposition home or self-care (01) | LOC: Rad HDHVI 13:31 | PROVIDERS: ATTEND Internal Medicine Cardiovascular Disease | DX: R60.9 Edema, unspecified (principal); M79.89 Other specified soft tissue disorders | CPT/HCPCS: 93971 ==

== ENCOUNTER → 2022-09-30 | Outpatient (CLI) | payer MEDICAID | END | disposition home or self-care (01) | LOC: Rad HDHVI 08:05 | PROVIDERS: ATTEND Internal Medicine Cardiovascular Disease | DX: M79.89 Other specified soft tissue disorders (principal); R60.9 Edema, unspecified; M79.605 Pain in left leg | CPT/HCPCS: 93971 ==